=== PATIENT | female | born 1995 | race Caucasian/White ===

== ENCOUNTER 2017-01-20 02:10 | Inpatient (IN) | payer OTHER, SELFPAY ==
[2017-01-20] VITALS (52 sets, daily range): BP systolic 111–173; BP diastolic 57–94
[~2017-01-20] VITALS: Ht 157.5 cm; Wt 71.0 kg
[2017-01-20] MEDS ORDERED: PRENTAB55 PO (02:29)
[2017-01-20] MEDS ORDERED: LR 1,000 ML IV SCH ×2 (02:47→12:45)
[2017-01-20 03:17] LABS: MEAN CORPUSCULAR HEMOGLOBIN 30.6 pg (27.0-33.0); MEAN CORPUSCULAR HGB CONC 33.3 g/dl (32.0-36.5); MEAN CORPUSCULAR VOLUME 91.8 fl (80.0-96.0); RED CELL DISTRIBUTION WIDTH 13.7 % (11.5-14.5); WHITE BLOOD COUNT 8.6 K/mm3 (4.0-10.0)
[2017-01-20 03:36] LABS: ALT/SGPT 22 U/L (12-78); AST/SGOT 18 U/L (15-37); BILIRUBIN,TOTAL < 0.1 MG/DL (0.2-1.0); GLOMERULAR FILTRATION RATE > 60.0 (>60); URIC ACID 5.9 MG/DL (2.6-6.0)
[2017-01-20] MEDS ORDERED: MAGNESIUM *L&D* 4 GM/100 ML BAG (40MG/ML) (J3475) As Ordered ONE (04:11)
[2017-01-20] MEDS ORDERED: MAG Sulf (OBGYN) 20GM/500ML 20,000 MG in APPROPRIATE DILUENT 1 EA IV SCH ×2 (04:15→13:11)
[2017-01-20] MEDS ORDERED: MAGNESIUM *L&D* 4 GM/100 ML BAG (40MG/ML) (J3475) IV ONE (04:15)
[2017-01-20] MEDS ORDERED: FENTANYL 2MCG/ML ROPIVACAINE 0.2% IN 0.9% NACL 200ML IVBAG As Ordered ONE (04:33)
[2017-01-20] MEDS ORDERED: EPIDURAL/PCA KEYS XX PRN (04:46)
[2017-01-20] MEDS ORDERED: LACTATED RINGER'S 1000 ML IV PRN (04:46)
[2017-01-20] MEDS ORDERED: NALOXONE INJ 0.4 MG/1 ML VIAL (J2310) IV PRN (04:46)
[2017-01-20] MEDS ORDERED: ePHEDrine SULFATE 25 MG/5 ML(5MG/ML) SYRINGE IV PRN (04:46)
[2017-01-20] MEDS ORDERED: FENTANYL/ROPIVACAINE/NACL BAG 200 ML EPIDURAL SCH (04:46)
[2017-01-20] MEDS ORDERED: diphenhydrAMINE INJ 50MG/ML VIAL (J1200) IV PRN (04:46)
[2017-01-20] MEDS ORDERED: ONDANSETRON 4MG/2ML VIAL (J2405) IV PRN ×3 (04:46→13:15)
[2017-01-20] MEDS ORDERED: REFRIGERATOR IV KEYS XX PRN (04:46)
[2017-01-20] MEDS ORDERED: EPIDURAL COMMENT XX SCH (04:46)
[2017-01-20] MEDS: PRENATAL VITAMINS CHEWABLE TABLET PO SCH (09:00)
--- NOTE | 2017-01-20 09:31 | HPE ---
DATE OF ADMISSION: 01/20/2017 21-year-old 1, para 0, last menstrual period (LMP) 04/18/2016, estimated date of confinement (EDC) 01/23/2017 at 39+ weeks of gestation with a history of spontaneous rupture of membranes and pito. 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 The is negative. LABORATORIES: AB positive. HIV negative. Hepatitis negative. RPR negative. Rubella immune. Varicella immune. Pap normal. Urine negative. Gonorrhea and chlamydia are negative. 1-hour glucose 120. Group B Streptococcus (GBS) is negative. On examination, she appears to be in distress. Her symphysis fundus height is 39, vertex, OA, 2 cm anterior. Clear liqua, obviously ruptured, 80% effaced, -2 station. Her reflexes are 3+, brisk upper and lower. No clonus. She has no visual issues. No headaches. No right upper quadrant pain. However, her preeclamptic profile indicates her protein creatinine ratio is high at 0.42, uric acid 5.9. Liver enzymes are normal. Platelets are normal at 179. Hemoglobin/hematocrit are normal. Blood pressure is 145/71, respirations 18, pulse 101, temperature 98.4. Urine is 1.010, 1+ for protein and everything else is negative. Our plan of management of this lady is to hydrate her, bolus, get her an epidural. She is having a 4 grams loading dose, presently 2 grams an hour after that. Davenport catheter, urine in-and-out, notified neonatology and the preeclamptic profile is in process. In summary, I have a 39+ week gestation with preeclampsia in active labor, monitored closely, safe to proceed.
[2017-01-20] MEDS ORDERED: MIDAZOLAM INJ 2 MG/2 ML VIAL (J2250) As Ordered ONE (10:00)
[2017-01-20] MEDS ORDERED: PROPOFOL 200 MG/20 ML VIAL As Ordered ONE (10:01)
[2017-01-20] MEDS ORDERED: fentaNYL 100 MCG/2 ML INJECTION (J3010) As Ordered ONE (10:01)
[2017-01-20] MEDS ORDERED: LIDOCAINE 2% INJ 100 MG/5 ML SDV (FOR ANES.) As Ordered ONE (10:02)
[2017-01-20] MEDS ORDERED: VASOPRESSIN INJ 20 UNITS/ML VIAL As Ordered ONE (10:02)
[2017-01-20] MEDS ORDERED: ceFAZolin 2 GM/D5W 50 ML IV BAG (J0690) As Ordered ONE (10:15)
[2017-01-20] MEDS ORDERED: ceFAZolin 1GM INJ (J0690) As Ordered ONE (10:21)
[2017-01-20] MEDS ORDERED: SUCCINYLCHOLINE 100 MG/5 ML SYRINGE (J0330) As Ordered ONE (10:50)
[2017-01-20] MEDS ORDERED: ROCURONIUM BROMIDE 50 MG/5 ML VIAL/SYRINGE As Ordered ONE (10:50)
[2017-01-20] MEDS ORDERED: LIDOCAINE 2% W/EPIN INJ 20ML **PRES FREE As Ordered ONE (10:50)
[2017-01-20] MEDS ORDERED: KETOROLAC 60 MG/2 ML VIAL (J1885) As Ordered ONE (11:04)
[2017-01-20] MEDS ORDERED: ONDANSETRON 4MG/2ML VIAL (J2405) As Ordered ONE (11:04)
[2017-01-20] MEDS ORDERED: dexameTHASONE 4 MG/ML 1ML VIAL (J1100) As Ordered ONE (11:04)
[2017-01-20] MEDS ORDERED: GLYCOPYRROLATE INJ 0.2 MG/ML 2 ML VIAL As Ordered ONE (11:09)
[2017-01-20] MEDS ORDERED: NEOSTIGMINE 1MG/ML 5 ML SYRINGE (J2710) As Ordered ONE (11:09)
[2017-01-20] MEDS ORDERED: ESTROGENS VAGINAL CREAM 30GM As Ordered ONE (11:17)
[2017-01-20] MEDS ORDERED: fentaNYL 100 MCG/2 ML INJECTION (J3010) IV PRN (12:45)
[2017-01-20] MEDS ORDERED: PERCOCET 5MG/325MG TAB PO PRN (12:45)
[2017-01-20] MEDS ORDERED: MAG Sulf (L&D) 4 GM/100 ML 4 GM in APPROPRIATE DILUENT 1 EA IV ONE (13:15)
[2017-01-20] MEDS ORDERED: MEASLES,MUMPS,RUBELLA VACCINE INJ (MMR-II) (90707) SC SCH (13:15)
[2017-01-20] MEDS ORDERED: DIBUCAINE 1% OINTMENT 30GM TOP PRN (13:15)
[2017-01-20] MEDS ORDERED: PROMETHAZINE 25 MG TAB PO PRN (13:15)
[2017-01-20] MEDS ORDERED: OXYTOCIN INJ 10 UNITS/ML VIAL (J2590) IV ONE ×2 (13:15→13:45)
[2017-01-20] MEDS ORDERED: RHOGAM 300 MCG (1500 IU) INJ (J2790) IM SCH (13:15)
[2017-01-20] MEDS: ACETAMINOPHEN 500 MG TAB PO PRN (18:41)
[2017-01-20] MEDS: LR 1,000 ML IV SCH (19:20)
[2017-01-20] MEDS: DOCUSATE SODIUM 100 MG CAP PO SCH (21:34)
[2017-01-20] MEDS: IBUPROFEN 800 MG TAB PO PRN (21:34)
[2017-01-21] VITALS (14 sets, daily range): BP systolic 109–139; BP diastolic 56–88
[2017-01-21] MEDS: LR 1,000 ML IV SCH ×2 (02:23→14:51)
[2017-01-21] MEDS: ACETAMINOPHEN 500 MG TAB PO PRN ×3 (06:36→21:10)
[2017-01-21 07:34] LABS: MEAN CORPUSCULAR HEMOGLOBIN 30.1 pg (27.0-33.0); MEAN CORPUSCULAR HGB CONC 32.6 g/dl (32.0-36.5); MEAN CORPUSCULAR VOLUME 92.1 fl (80.0-96.0); RED CELL DISTRIBUTION WIDTH 14.1 % (11.5-14.5); WHITE BLOOD COUNT 10.8 K/mm3 (4.0-10.0)
[2017-01-21] MEDS: DOCUSATE SODIUM 100 MG CAP PO SCH ×2 (08:23→21:10)
[2017-01-21] MEDS: MIRALAX *UNIT DOSE* 17GM PACKET PO SCH (08:23)
[2017-01-21] MEDS: PRENATAL VITAMINS CHEWABLE TABLET PO SCH (08:23)
[2017-01-21] MEDS: IBUPROFEN 800 MG TAB PO PRN ×2 (13:36→21:10)
[2017-01-21] MEDS ORDERED: ONDANSETRON 4 MG TAB (S0181) PO PRN (17:45)
[2017-01-21] MEDS ORDERED: PROMETHAZINE 25 MG TAB PO PRN (17:45)
[2017-01-22 02:00] VITALS: BP 126/66
[2017-01-22] MEDS: LR 1,000 ML IV SCH ×2 (05:03→21:16)
[2017-01-22 06:23] VITALS: BP 128/66
[2017-01-22] MEDS: PRENATAL VITAMINS CHEWABLE TABLET PO SCH (09:12)
[2017-01-22] MEDS: MIRALAX *UNIT DOSE* 17GM PACKET PO SCH (09:12)
[2017-01-22] MEDS: DOCUSATE SODIUM 100 MG CAP PO SCH ×2 (09:12→20:58)
[2017-01-22 09:20] LABS: MEAN CORPUSCULAR HEMOGLOBIN 30.3 pg (27.0-33.0); MEAN CORPUSCULAR HGB CONC 32.9 g/dl (32.0-36.5); MEAN CORPUSCULAR VOLUME 91.9 fl (80.0-96.0); RED CELL DISTRIBUTION WIDTH 13.6 % (11.5-14.5); WHITE BLOOD COUNT 9.4 K/mm3 (4.0-10.0)
[2017-01-22 10:39] VITALS: BP 129/85
[2017-01-22] MEDS: IBUPROFEN 800 MG TAB PO PRN (12:53)
[2017-01-22 14:26] VITALS: BP 149/91
[2017-01-22 18:34] VITALS: BP 126/70
[2017-01-22] MEDS: ACETAMINOPHEN 500 MG TAB PO PRN (20:58)
[2017-01-22 22:15] VITALS: BP 135/81
[2017-01-23] VITALS (9 sets, daily range): BP systolic 132–175; BP diastolic 81–96
[2017-01-23] MEDS: DOCUSATE SODIUM 100 MG CAP PO SCH ×2 (09:59→20:21)
[2017-01-23] MEDS: PRENATAL VITAMINS CHEWABLE TABLET PO SCH (10:00)
[2017-01-23] MEDS: MIRALAX *UNIT DOSE* 17GM PACKET PO SCH (10:00)
[2017-01-23] MEDS: LABETALOL 200 MG TAB PO SCH ×2 (11:46→20:21)
[2017-01-23] MEDS: IBUPROFEN 800 MG TAB PO PRN (15:32)
== END 2017-01-23 20:25 | disposition home or self-care (01) | DRG 774 ==
LOC: M LDO 02:10 → M LDI 02:45 → M OBS 01-21 12:35
PROVIDERS: ADMIT Obstetrics & Gynecology; ATTEND Obstetrics & Gynecology
PROC: 0DQP0ZZ Repair Rectum, Open Approach (ICD-10-PCS; 2017-01-20)
PROC: 0UQC0ZZ Repair Cervix, Open Approach (ICD-10-PCS; 2017-01-20)
PROC: 10E0XZZ Delivery of Products of Conception, External Approach (ICD-10-PCS; principal; 2017-01-20 09:55)
DX: O14.14 Severe pre-eclampsia complicating childbirth (principal); O14.15 Severe pre-eclampsia, complicating the puerperium; Z37.0 Single live birth; Z3A.39 39 weeks gestation of pregnancy; O70.3 Fourth degree perineal laceration during delivery; O71.3 Obstetric laceration of cervix

== ENCOUNTER → 2017-08-31 | Outpatient (REF) | payer OTHER | LOC: M SFHCLERA 12:57 | DX: R50.9 Fever, unspecified (principal) ==